=== PATIENT | male | born 1990 | race Caucasian/White ===

== ENCOUNTER 2024-07-09 15:39 | Emergency (ER) | payer OTHER ==
[~2024-07-09] VITALS: Ht 170.2 cm; Wt 65.8 kg
[2024-07-09 15:46] VITALS: BP 143/86; TEMP 98
[2024-07-09] MEDS ORDERED: IBUP-1490 PO (16:47)
[2024-07-09 16:56] VITALS: O2SAT 97
== END 2024-07-09 16:57 | disposition home or self-care (01) ==
LOC: ER 15:52
DX: S63.636A Sprain of interphalangeal joint of right little finger, initial encounter (principal); X58.XXXA Exposure to other specified factors, initial encounter; Y93.89 Activity, other specified; Y92.89 Other specified places as the place of occurrence of the external cause; Y99.8 Other external cause status
CPT/HCPCS: 73130-TC